=== PATIENT | male | born 1945 | race Caucasian/White ===

== ENCOUNTER 2017-11-10 11:13 | Emergency (ER) | payer MEDICARE, OTHER ==
--- NOTE | 2017-11-10 11:56 | EDM.PDOC ---
ED HPI GENERAL MEDICAL PROBLEM - General Chief Complaint: Trauma Stated Complaint: SLID OFF OF ROOF HURT LT ANKLE Time Seen by Provider: 11/10/17 11:30 Source of Information: Reports: Patient History Limitations: Reports: No Limitations - History of Present Illness INITIAL COMMENTS - FREE TEXT/NARRATIVE: 72-year-old male slid off his roof landing hard on his left foot sustaining an injury to the foot. No other injury. Onset: Sudden Duration: Hour(s): (Within the last hour) Location: Reports: Lower Extremity, Left Associated Symptoms: Reports: No Other Symptoms Left Feet Pain Score (Numeric/FACES): 1 - Related Data Allergies Allergy/AdvReac Type Severity Reaction Status Date / Time No Known Allergies Allergy Verified 11/10/17 11:22 Home Meds: Home Meds Tamsulosin [Flomax] 1 tab PO BEDTIME 11/10/17 [History] amLODIPine Besylate [Amlodipine Besylate] 5 mg PO ASDIRECTED PRN 11/10/17 [ History] Past Medical History HEENT History: Reports: Impaired Vision Cardiovascular History: Reports: Hypertension Genitourinary History: Reports: BPH Musculoskeletal History: Reports: Fracture, Other (See Below) Other Musculoskeletal History: broken hip Oncologic (Cancer) History: Reports: Basal Cell Carcinoma - Past Surgical History Musculoskeletal Surgical History: Reports: Other (See Below) Other Musculoskeletal Surgeries/Procedures:: hip repair Social & Family History - Tobacco Use Smoking Status *Q: Never Smoker - Recreational Drug Use Recreational Drug Use: No Review of Systems - Review of Systems Review Of Systems: See Below Constitutional: Denies: Fever Respiratory: Denies: Shortness of Breath Cardiovascular: Denies: Chest Pain GI/Abdominal: Denies: Abdominal Pain Musculoskeletal: Reports: Other (Left foot pain only) Neurological: Reports: No Symptoms ED EXAM, GENERAL - Physical Exam Exam: See Below Exam Limited By: No Limitations General Appearance: Alert, No Apparent Distress Head: Atraumatic Neck: Supple Respiratory/Chest: No Respiratory Distress Cardiovascular: Regular Rate, Rhythm Extremities: Other (Exam is otherwise limited to the left lower extremity. There is some swelling over the medial and lateral malleolus but not a lot of palpation tenderness. Some discomfort with palpation of the posterior foot.) Course - Vital Signs Last Recorded V/S: Last Vital Signs Temp 94.6 F L 11/10/17 11:18 Pulse 65 11/10/17 12:21 Resp 16 11/10/17 12:21 BP 151/90 H 11/10/17 12:21 Pulse Ox 95 11/10/17 12:21 - Orders/Labs/Meds Orders: Active Orders 24 hr Category Date Time Status DME for Discharge [COMM] Stat Oth 11/10/17 12:09 Ordered - Re-Assessments/Exams Free Text/Narrative Re-Assessment/Exam: 11/10/17 11:56 A left ankle and foot x-ray was obtained. 11/10/17 12:11 X-ray confirms a comminuted calcaneus fracture of the left side. Patient was placed in any Cam Walker support boot, and given crutches but cannot bear any weight on his foot until rechecked by orthopedics next week. A copy of the x- ray was given, he'll need a CT scan to further evaluate the injury but he wants to get this done in [place] where he is from. He is going to elevate the foot, use anti-inflammatories and was given 20 Vicodin for extra pain control. Departure - Departure Time of Disposition: 12:47 Disposition: Home, Self-Care 01 Condition: Good Clinical Impression: Calcaneus fracture, left Qualifiers: Encounter type: initial encounter Calcaneus location: body Fracture type: closed Fracture alignment: displaced Qualified Code(s): S92.012A - Displaced fracture of body of left calcaneus, initial encounter for closed fracture - Discharge Information Instructions: Cast or Splint Care, Adult, [id number] Referrals: PCP,None [Primary Care Provider] - Forms: ED Department Discharge Care Plan Goals: Use crutches and wear boot for support only, do not bear weight with your injured left foot. Elevate the foot when able, and recheck with orthopedics as soon as you return home next week. Ibuprofen or naproxen will help with pain, add stronger pain medications if needed. Take copy of x-ray with you to your recheck. - My Orders Last 24 Hours: My Active Orders 11/10/17 12:09 DME for Discharge [COMM] Stat - Assessment/Plan Last 24 Hours: My Active Orders 11/10/17 12:09 DME for Discharge [COMM] Stat
--- NOTE | 2017-11-10 12:33 | CR ---
Ankle Min 3V Lt CLINICAL HISTORY: Trauma FINDINGS: There is a comminuted fracture of the calcaneus. There is some periarticular spurring. Ther e is some asymmetry in the ankle mortise IMPRESSION: Comminuted fracture calcaneus Asymmetry in the ankle mortise may represent ligamentous injury
--- NOTE | 2017-11-10 12:34 | CR ---
Foot Comp Min 3V Lt CLINICAL HISTORY: Trauma FINDINGS: There is a comminuted fracture of the calcaneus. This extends into the subtalar joint area there are some degenerative changes diffusely. IMPRESSION: Comminuted slightly displaced fracture of the calcaneus
== END 2017-11-10 12:47 | disposition home or self-care (01) ==
LOC: JP.ED 11:13
DX: S92.012A Displaced fracture of body of left calcaneus, initial encounter for closed fracture (principal); I10 Essential (primary) hypertension; W17.89XA Other fall from one level to another, initial encounter
CPT/HCPCS: 73610-26-LT; 73610-LT; 73630-26-LT; 73630-LT; 99284-25